=== PATIENT | female | born 1990 | race Asian ===

== ENCOUNTER 2017-06-21 14:05 | Inpatient (IN) | payer SELFPAY ==
[~2017-06-21] VITALS: Ht 163 cm; Wt 75.7 kg
[2017-06-21] MEDS ORDERED: LR 1,000 ML IV ONE (14:42)
[2017-06-21] MEDS ORDERED: CEFAZOLIN 2 GM IVPB PREMIX 50 ML IV ONE (14:45)
[2017-06-21 15:04] LABS: EOSINOPHILS % (AUTO) 0.3 % (0.0-4.0); HEMATOCRIT 38.5 % (36-48); LYMPHOCYTES # (AUTO) 1.9 K/uL (1.0-5.5); MEAN CORPUSCULAR HEMOGLOBIN 33 pg (27-31); MEAN CORPUSCULAR HGB CONC 34 % (32-36); MEAN CORPUSCULAR VOLUME 97 fL (79.0-98.0); MONOCYTES # (AUTO) 0.4 K/uL (0.0-1.0); MONOCYTES % (AUTO) 4.1 % (1.7-9.3); PLATELET COUNT (AUTO) 156 K/uL (130-430); RED BLOOD CELL COUNT(AUTO) 3.96 MIL/uL (4.2-6.2); RED CELL DISTRIBUTION WIDTH 12.3 % (9.0-15.0)
[2017-06-21 15:13] LABS: NEUTROPHILS # (AUTO) 7.7 K/uL (1.8-7.7); NEUTROPHILS % (AUTO) 76.6 % (40.0-70.0)
[2017-06-21] MEDS ORDERED: LR 1,000 ML IV SCH (17:39)
[2017-06-21] MEDS ORDERED: KETOROLAC TROMETHAMINE 60 MG/2 ML VIAL IM PRN (17:45)
[2017-06-21] MEDS ORDERED: NALOXONE HCL 0.4 MG/ML AMP (NARCAN) IVP PRN (17:45)
[2017-06-21] MEDS ORDERED: METOCLOPRAMIDE HCL 10 MG/2 ML VIAL IVP PRN (17:45)
[2017-06-21] MEDS ORDERED: ONDANSETRON HCL 4 MG/2 ML VIAL IVP PRN (17:45)
[2017-06-21] MEDS ORDERED: MORPHINE SULFATE 10MG/10ML PF AMP SP SCH (17:45)
[2017-06-21] MEDS ORDERED: OXYTOCIN/0.9 % SODIUM CHLORIDE 1,000 ML IV ONE ×2 (18:04→21:36)
[2017-06-21] MEDS ORDERED: HYDROcodone/ACETAMIN 5-325 MG TAB (NORCO/ VICODIN) PO PRN (18:15)
[2017-06-21] MEDS ORDERED: ANUSOL 1 EA SUPP.RECT (PREPARATION H) RC PRN (18:15)
[2017-06-21] MEDS ORDERED: LANOLIN 7 GM OINT. TP PRN (18:15)
[2017-06-21] MEDS ORDERED: OXYCODONE/ACETAMINOPHEN 5-325 TABLET PO PRN ×2 (18:15)
[2017-06-21] MEDS ORDERED: MEASLES,MUMPS&RUBELLA VACC/PF 12500 UNIT/0.5 ML VIAL SUBQ PRN (18:15)
[2017-06-21] MEDS ORDERED: DOCUSATE SODIUM 100 MG CAPSULE PO PRN (18:15)
[2017-06-21] MEDS: DIPHENHYDRAMINE INJ 50 MG/ML VIAL IM PRN (20:13)
[2017-06-21] MEDS ORDERED: TEMAZEPAM 15 MG CAPSULE PO PRN (21:00)
[2017-06-21] MEDS ORDERED: METHYLERGONOVINE MALEATE 0.2 MG/ML AMP ONE ×2 (21:34→22:13)
[2017-06-21] MEDS ORDERED: HEMABATE 250MCG/ML VIAL AMP IM ONE ×2 (21:50→23:00)
[2017-06-21] MEDS ORDERED: OXYTOCIN 10 UNIT/ML VIAL ONE (22:14)
[2017-06-21 22:29] LABS: HEMATOCRIT 31.2 % (36-48)
[2017-06-21] MEDS ORDERED: METHYLERGONOVINE MALEATE 0.2 MG/ML AMP IM ONE ×3 (23:00)
[2017-06-21] MEDS ORDERED: OXYTOCIN 10 UNIT/ML VIAL IM ONE ×3 (23:00)
[2017-06-21] MEDS: CEFAZOLIN 1 GM IVPB PREMIX 50 ML IV SCH (23:58)
[2017-06-22] MEDS ORDERED: OXYTOCIN 10 UNIT/ML VIAL ONE (00:08)
[2017-06-22] MEDS ORDERED: METHYLERGONOVINE MALEATE 0.2 MG/ML AMP ONE ×2 (00:09→00:34)
[2017-06-22] MEDS: IBUPROFEN 600 MG TABLET PO SCH ×3 (06:00→23:55)
[2017-06-22] MEDS: CEFAZOLIN 1 GM IVPB PREMIX 50 ML IV SCH (06:07)
[2017-06-22 07:09] LABS: BASOPHILS % (AUTO) 0.2 % (0.0-2.0); EOSINOPHILS % (AUTO) 0.1 % (0.0-4.0); HEMATOCRIT 27.1 % (36-48); HEMOGLOBIN 9.5 g/dL (12.0-16.0); LYMPHOCYTES # (AUTO) 1.3 K/uL (1.0-5.5); LYMPHOCYTES % (AUTO) 9.8 % (20.5-51.5); MEAN CORPUSCULAR HEMOGLOBIN 34 pg (27-31); MEAN CORPUSCULAR HGB CONC 35 % (32-36); MEAN CORPUSCULAR VOLUME 96 fL (79.0-98.0); MONOCYTES # (AUTO) 0.8 K/uL (0.0-1.0); MONOCYTES % (AUTO) 5.9 % (1.7-9.3); NEUTROPHILS # (AUTO) 11.3 K/uL (1.8-7.7); PLATELET COUNT (AUTO) 107 K/uL (130-430); RED BLOOD CELL COUNT(AUTO) 2.82 MIL/uL (4.2-6.2); RED CELL DISTRIBUTION WIDTH 12.6 % (9.0-15.0); WHITE BLOOD COUNT (AUTO) 13.4 K/uL (4.8-10.8)
[2017-06-22] MEDS ORDERED: ACETAMINOPHEN 325 MG TABLET PO PRN (07:15)
[2017-06-22] MEDS ORDERED: ACETAMINOPHEN 325 MG TABLET ONE (07:24)
[2017-06-22] MEDS: FERROUS SULFATE 325 MG TABLET.DR PO SCH ×3 (09:09→21:16)
[2017-06-22] MEDS: ceFAZolin SODIUM 2 GM in D5W 100 ML IV SCH ×2 (13:47→22:00)
[2017-06-22] MEDS: SIMETHICONE 80 MG TAB.CHEW PO PRN ×2 (15:51→21:25)
[2017-06-22] MEDS: DIPHENHYDRAMINE INJ 50 MG/ML VIAL IM PRN (16:33)
[2017-06-22] MEDS: METHYLERGONOVINE MALEATE 0.2 MG TABLET PO SCH ×2 (16:49→21:17)
[2017-06-23] MEDS: IBUPROFEN 600 MG TABLET PO SCH ×3 (06:00→18:15)
[2017-06-23] MEDS: ceFAZolin SODIUM 2 GM in D5W 100 ML IV SCH (06:14)
[2017-06-23 07:03] LABS: BASOPHILS % (AUTO) 0.4 % (0.0-2.0); EOSINOPHILS # (AUTO) 0.1 K/uL (0.0-0.4); EOSINOPHILS % (AUTO) 0.6 % (0.0-4.0); LYMPHOCYTES # (AUTO) 1.7 K/uL (1.0-5.5); LYMPHOCYTES % (AUTO) 13.9 % (20.5-51.5); MEAN CORPUSCULAR HEMOGLOBIN 33 pg (27-31); MEAN CORPUSCULAR HGB CONC 34 % (32-36); MEAN CORPUSCULAR VOLUME 98 fL (79.0-98.0); MONOCYTES # (AUTO) 0.5 K/uL (0.0-1.0); MONOCYTES % (AUTO) 4.4 % (1.7-9.3); NEUTROPHILS # (AUTO) 10.1 K/uL (1.8-7.7); NEUTROPHILS % (AUTO) 80.7 % (40.0-70.0); PLATELET COUNT (AUTO) 110 K/uL (130-430); RED BLOOD CELL COUNT(AUTO) 2.45 MIL/uL (4.2-6.2); RED CELL DISTRIBUTION WIDTH 12.8 % (9.0-15.0); WHITE BLOOD COUNT (AUTO) 12.4 K/uL (4.8-10.8)
[2017-06-23] MEDS: FERROUS SULFATE 325 MG TABLET.DR PO SCH ×2 (09:16→14:42)
[2017-06-23] MEDS: METHYLERGONOVINE MALEATE 0.2 MG TABLET PO SCH (09:16)
[2017-06-23 11:27] VITALS: BP_SYST 94
[2017-06-23] MEDS ORDERED: CLINDAMYCIN HCL 150 MG CAPSULE PO SCH (13:45)
[2017-06-23] MEDS: SIMETHICONE 80 MG TAB.CHEW PO PRN (15:08)
== END 2017-06-23 18:55 | disposition home or self-care (01) | DRG 765 ==
LOC: SPU 14:05
PROVIDERS: ADMIT Obstetrics & Gynecology; ATTEND Obstetrics & Gynecology
PROC: 10D00Z1 Extraction of Products of Conception, Low, Open Approach (ICD-10-PCS; principal; 2017-06-21 17:00)
DX: O69.81X0 Labor and delivery complicated by cord around neck, without compression, not applicable or unspecified (principal); O72.1 Other immediate postpartum hemorrhage; Z37.0 Single live birth; Z3A.40 40 weeks gestation of pregnancy
CPT/HCPCS: 36415; 83051; 85014-TC; 85025; 86886; 86900; 86901; 86920; 94760; J0690; J1200; J2210; J2405; J2590; J7060